=== PATIENT | female | born 1995 ===

== ENCOUNTER 2017-05-03 11:04 | Outpatient (CLI) | payer MEDICAID ==
[2017-05-03 11:39] VITALS: BP 133/79
[2017-05-03] MEDS ORDERED: VISTARIL PO ONE (12:53)
== END 2017-05-03 13:48 | disposition home or self-care (01) ==
LOC: TRG 11:04
PROVIDERS: ATTEND Obstetrics & Gynecology
DX: O47.1 False labor at or after 37 completed weeks of gestation (principal); Z3A.37 37 weeks gestation of pregnancy
CPT/HCPCS: 59025; Q0177

== ENCOUNTER 2017-05-25 11:13 | Outpatient (CLI) | payer MEDICAID ==
[2017-05-25 11:26] VITALS: BP 119/71
== END 2017-05-25 12:49 | disposition home or self-care (01) ==
LOC: TRG 11:13
PROVIDERS: ATTEND Obstetrics & Gynecology
DX: O48.0 Post-term pregnancy (principal); Z3A.40 40 weeks gestation of pregnancy

== ENCOUNTER 2017-05-26 12:26 | Outpatient (CLI) | payer MEDICAID ==
[2017-05-26 12:33] VITALS: BP 117/62
[2017-05-26] MEDS ORDERED: LACTATED RINGERS 1,000 ML ONE (13:25)
[2017-05-26] MEDS ORDERED: VISTARIL PO ONE (14:25)
== END 2017-05-26 15:16 | disposition home or self-care (01) ==
LOC: TRG 12:26
PROVIDERS: ATTEND Obstetrics & Gynecology
DX: O48.0 Post-term pregnancy (principal); Z3A.40 40 weeks gestation of pregnancy
CPT/HCPCS: 59025; 96360; J7120; Q0177

== ENCOUNTER 2017-05-26 22:06 | Outpatient (CLI) | payer MEDICAID ==
[2017-05-26 22:16] VITALS: BP 133/60
--- NOTE | 2017-05-26 23:45 | Ultrasound Report ---
FINAL REPORT EXAM: US OB LIMITED HISTORY: vaginal leaking COMPARISON: None available. TECHNIQUE: Several real-time grayscale and color Doppler images were obtained. FINDINGS: Exam performed for evaluation of GUILLAUME only. GUILLAUME 7.9 centimeters. This is lower limits of normal. cardiac activity demonstrated. heart rate 130 beats per minute. Technologist notes position cephalic. Technologist notes placenta location fundal. IMPRESSION: Normal GUILLAUME 7.9 centimeters.
[2017-05-27] MEDS ORDERED: VISTARIL ONE (00:34)
[2017-05-27] MEDS ORDERED: VISTARIL PO ONE (00:43)
== END 2017-05-27 01:34 | disposition home or self-care (01) ==
LOC: TRG 22:06
PROVIDERS: ATTEND Obstetrics & Gynecology
DX: O42.92 Full-term premature rupture of membranes, unspecified as to length of time between rupture and onset of labor (principal); O48.0 Post-term pregnancy; Z3A.40 40 weeks gestation of pregnancy
CPT/HCPCS: 76815; Q0177

== ENCOUNTER 2018-07-10 15:44 | Outpatient (CLI) | payer MEDICAID ==
[2018-07-10 16:02] VITALS: BP 120/66
[2018-07-10] MEDS ORDERED: LACTATED RINGERS 500 ML IV ONE (17:05)
[2018-07-10 17:27] LABS: Bilirubin,Urine NEG (Negative); Blood,Urine SM (Negative); Color,Urine Yellow (Yellow); Mucus,Urine FEW /HPF; Protein,Urine <15 mg/dL mg/dL (Negative); WBC,Urine < 1.0 /HPF (0.0-6.0)
== END 2018-07-10 18:00 | disposition home or self-care (01) ==
LOC: TRG 15:44
PROVIDERS: ATTEND Obstetrics & Gynecology
DX: O47.03 False labor before 37 completed weeks of gestation, third trimester (principal); Z3A.33 33 weeks gestation of pregnancy
CPT/HCPCS: 81001; 87086

== ENCOUNTER 2018-08-17 05:25 | Inpatient (IN) | payer MEDICAID ==
[2018-08-17] MEDS ORDERED: NARCAN 0.4 MG/1 ML IV PRN (07:18)
[2018-08-17] MEDS ORDERED: MINERAL OIL PO PRN (07:18)
[2018-08-17] MEDS ORDERED: BRETHINE IVP PRN (07:18)
[2018-08-17] MEDS ORDERED: BRETHINE SUB-Q PRN (07:18)
[2018-08-17] MEDS ORDERED: ZOFRAN IV PRN ×2 (07:18→14:42)
[2018-08-17] MEDS ORDERED: SUBLIMAZE IV PRN (07:18)
[2018-08-17] MEDS ORDERED: STADOL IV PRN (07:18)
[2018-08-17] MEDS ORDERED: XYLOCAINE 2% INFILTRATI ONE (07:18)
[2018-08-17] MEDS ORDERED: AMPICILLIN/NS 2 GM/100 ML 2 GM/100 ML BAG IV ONE (07:29)
[2018-08-17] MEDS ORDERED: LACTATED RINGERS 1,000 ML IV SCH (08:00)
[2018-08-17] MEDS ORDERED: PITOCin/NS 20 UNIT/1000ML DRIP 20 UNITS/1,000 ML BAG IV SCH ×2 (08:00→15:00)
[2018-08-17] MEDS ORDERED: PITOCin/NS 30 UNIT/500ML 30 UNITS/500 ML BAG IV SCH (08:00)
[2018-08-17 09:03] LABS: Hematocrit 36.1 % (30.3-42.9); Hemoglobin 11.9 gm/dl (10.1-14.3); Mean Corpuscular HGB Conc 33 % (30-34); Mean Corpuscular Volume 83 fl (79-97); Platelet Count 214 K/mm3 (140-440); Red Blood Count 4.36 M/mm3 (3.65-5.03); Red Cell Distribution Width 13.8 % (13.2-15.2)
[2018-08-17] MEDS ORDERED: NARCAN 2 MG/2 ML IV PRN (11:02)
--- NOTE | 2018-08-17 11:04 | Anesthesia Consultation ---
Anesthesia Consult and Med Hx - Airway Anesthetic Teeth Evaluation: Good ROM Head & Neck: Adequate Mental/Hyoid Distance: Adequate Mallampati Class: Class I Intubation Access Assessment: Probably Good - Pulmonary Exam CTA: Yes - Cardiac Exam Cardiac Exam: RRR - Pre-Operative Health Status ASA Pre-Surgery Classification: ASA2 Proposed Anesthetic Plan: Epidural - Pulmonary Hx Asthma: Yes (inhaler last used more than a year ago) COPD: No Hx Pneumonia: No - Cardiovascular System Hx Hypertension: No Hx Coronary Artery Disease: No Hx Heart Attack/AMI: No Hx Angina: No Hx Percutaneous Transluminal Coronary Angioplasty (PTCA): No Hx Cardia Arrhythmia: No Hx Pacemaker: No Hx Internal Defibrillator: No Hx Valvular Heart Disease: No Hx Heart Murmur: No Hx Peripheral Vascular Disease: No - Central Nervous System Hx Neuromuscular Disorder: No Hx Seizures: No CVA: No Hx Back Pain: No Hx Psychiatric Problems: No - Endocrine Hx Renal Disease: No Hx End Stage Renal Disease: No Hx Hypothyroidism: No Hx Hyperthyroidism: No - Hematic Hx Anemia: No Hx Sickle Cell Disease: No - Other Systems Hx Alcohol Use: No
--- NOTE | 2018-08-17 11:04 | Anesthesia Day of Surgery ---
Anesthesia Day of Surgery - Day of Surgery Patient Examined: Yes Patient H&P Reviewed: Yes Patient is NPO: Yes Beta Blockers: No Cardiac Clearance: No Pulmonary Clearance: No Murtaza's Test: N/A
[2018-08-17] MEDS ORDERED: MARCAINE 0.25% INFILTRATI ONE (11:07)
[2018-08-17] MEDS ORDERED: AMPICILLIN/NS 1 GM/50 ML 1 GM/50 ML BAG IV SCH (11:30)
[2018-08-17] MEDS ORDERED: fentaNYL-BUPIV 2 MCG/ML-0.125% 200 MCG/100 ML BAG EPIDURAL SCH (12:00)
[2018-08-17] MEDS ORDERED: METHERGINE IM ONE ×2 (12:38→15:00)
--- NOTE | 2018-08-17 13:03 | History and Physical Report ---
History of Present Illness Date of examination: 08/17/18 Date of admission: 08/17/18 05:25 Chief complaint: rupture of membranes History of present illness: Pt is a 23 year old -F[place] female TRE 08/25/18 at 38w6d who presents with rupture of membranes at 1 am. She denies vaginal bleeding and reports irregular contractions. She has has care at [facility] since 14 wks complicated by morbid obesity, genital herpes without evid ence of lesion or prodrome, and UTI s/p treatment. She is GBS positive. Past History Past Medical History: other (Morbid Obesity ) Past Surgical History: other (bone marrow biopsy ) [employer] History: herpes Family/Genetic History: diabetes Social history: no significant social history - Obstetrical History Expected Date of Delivery: 08/25/18 Actual Gestation: 38 Week(s) 6 Day(s) : 2 Para: 1 Hx # Term Pregnancies: 1 Number of Pregnancies: 0 Spontaneous Abortions: 0 Induced : 0 Number of Living Children: 1 Medications and Allergies Allergies Allergy/AdvReac Type Severity Reaction Status Date / Time sulfamethoxazole Allergy Rash Verified 01/26/16 00:01 [From Bactrim] trimethoprim [From Bactrim] Allergy Rash Verified 01/26/16 00:01 Home Medications Medication Instructions Recorded Confirmed Last Taken Type Valacyclovir HCl [Valtrex] 1 tab PO DAILY 05/25/17 05/27/17 05/25/17 08:00 History 1 tab Ferrous Sulfate 325 mg PO BID #30 tablet. 05/27/17 07/10/18 Unknown Rx Ibuprofen [Motrin] 600 mg PO Q8H PRN #60 tablet 05/27/17 Unknown Rx oxyCODONE /ACETAMINOPHEN [Percocet 1 tab PO Q6HR PRN #30 tablet 05/27/17 Unknown Rx 5/325] Active Meds: Active Medications Butorphanol Tartrate (Stadol) 2 mg IV Q2H PRN PRN Reason: Pain , Severe (7-10) Last Admin: 08/17/18 09:16 Dose: 2 mg Documented by: Ephedrine Sulfate (Ephedrine Sulfate) 10 mg IV Q2M PRN PRN Reason: Hypotension Ephedrine Sulfate (Ephedrine Sulfate) 10 mg IV Q2M PRN PRN Reason: Hypotension Fentanyl (Sublimaze) 100 mcg IV Q2H PRN PRN Reason: Labor Pain Lactated Ringer's (Lactated Ringers) 1,000 mls @ 125 mls/hr IV DIRECT NHAN Last Admin: 08/17/18 07:48 Dose: 125 mls/hr Documented by: Oxytocin/Sodium Chloride (Pitocin/Ns 20 Unit/1000ml Drip) 20 units in 1,000 mls @ 125 mls/hr IV DIRECT NHAN Oxytocin/Sodium Chloride (Pitocin/Ns 30 Unit/500ml) 30 units in 500 mls @ 4 mls/hr IV TITR NHAN; Protocol Ampicillin Sodium (Ampicillin/Ns 1 Gm/50 Ml) 1 gm in 50 mls @ 100 mls/hr IV Q4HR NHAN; Protocol Fentanyl/Bupivacaine/Sodium Chlor (Fentanyl-Bupiv 2 Mcg/Ml-0.125%) 200 mcg in 100 mls @ 12 mls/hr EPIDURAL TITR NHAN; Protocol Mineral Oil (Mineral Oil) 30 ml PO QHS PRN PRN Reason: Constipation Naloxone HCl (Narcan 0.4 Mg/1 Ml) 0.1 mg IV Q2MIN PRN PRN Reason: Res Rate </= 8 or 02 SAT < 92% Naloxone HCl (Narcan 2 Mg/2 Ml) 0.2 mg IV Q5M PRN PRN Reason: Respiratory sedation Ondansetron HCl (Zofran) 4 mg IV Q8H PRN PRN Reason: Nausea And Vomiting Last Admin: 08/17/18 09:10 Dose: 4 mg Documented by: Terbutaline Sulfate (Brethine) 0.25 mg SUB-Q ONCE PRN PRN Reason: Hyperstimulation/Hypertonicity Terbutaline Sulfate (Brethine) 0.25 mg IVP ONCE PRN PRN Reason: Hyperstimulation/Hypertonicity Review of Systems All systems: negative - Vital Signs Vital signs: Vital Signs Pulse BP 102 H 122/61 08/17/18 05:43 08/17/18 05:43 Temp Pulse Resp BP Pulse Ox 98.5 F 106 H 18 191/80 100 08/17/18 05:51 08/17/18 12:48 08/17/18 05:51 08/17/18 12:48 08/17/18 12:20 - Physical Exam Breasts: Positive: deferred Cardiovascular: Regular rate Lungs: Positive: Clear to auscultation Abdomen: Positive: soft (obese, gravid ) Genitourinary (Female): Positive: normal external genitalia Uterus: Positive: enlarged (gravid ) Extremities: Positive: normal - Obstetrical FHR: auscultation normal Uterine Contraction Monitor Mode: External Cervical Dilatation: 10 Cervical Effacement Percentage: 100 station: 0 Uterine Contraction Pattern: Regular Uterine Tone Measurement Phase: Resting Uterine Contraction Intensity: Strong/Firm Results Result Diagrams: 08/17/18 07:00 Abnormal lab results 08/17/18 Range/Units 07:00 MCH 27 L (28-32) pg All other labs normal. Assessment and Plan A: IUP at 38w6d SROM Second stage labor Morbid Obesity GBS Positive Genital Herpes without lesion or prodrome P: Admit to labor and delivery. Routine intrapartum care
--- NOTE | 2018-08-17 13:04 | Procedure Note ---
OB Delivery Note - Delivery Date of Delivery: 08/17/18 Surgeon: BECCA DE LA ROSA Estimated blood loss: other (400 mL) - Vaginal Delivery presentation: vertex Delivery position: OA Intrapartum events: PROM->1hr before delivery, uterine atony Delivery induction: oxytocin Delivery augmentation: pitocin Delivery monitor: external FHT, external uterine Route of delivery: Delivery placenta: spontaneous Episiotomy: none Delivery laceration: other (Bilateral periurethral ) Delivery repair: vicryl (Left periurethral repaired with 3-0 Vicryl in a standard fashion, others hemostatic ) Anesthesia: local, epidural - A at 1 minute: 8 at 5 minutes: 9 Gender: Female (3009 (6lb 13 oz) @ 1227 pm)
[2018-08-17] MEDS ORDERED: SODIUM CHLORIDE FLUSH SYRINGE 10 ML IV NR (14:42)
[2018-08-17] MEDS ORDERED: DULCOLAX PR PRN (14:42)
[2018-08-17] MEDS ORDERED: PHENERGAN PR PRN (14:42)
[2018-08-17] MEDS ORDERED: TYLENOL PO PRN (14:42)
[2018-08-17] MEDS ORDERED: TUCKS PAD TP PRN (14:42)
[2018-08-17] MEDS ORDERED: DERMOPLAST TP PRN (14:42)
[2018-08-17] MEDS ORDERED: PHENERGAN PO PRN (14:42)
[2018-08-17] MEDS ORDERED: LANSINOH TP PRN ×2 (14:42)
[2018-08-17] MEDS ORDERED: MILK OF MAGNESIA PO PRN (14:42)
[2018-08-17] MEDS ORDERED: BENADRYL PO PRN (14:42)
[2018-08-17] MEDS: IBUPROFEN PO SCH ×2 (15:10→22:27)
[2018-08-17] MEDS: NORCO 5/325 PO PRN (15:21)
--- NOTE | 2018-08-17 16:41 | Event Note ---
Date: 08/17/18 Contacted by pt's RN secondary to moderate bleeding since admission to the unit. Initiate PO Methergine series and continue to monitor clinically.
[2018-08-17] MEDS: METHERGINE PO SCH (16:57)
[2018-08-17] MEDS: FEOSOL PO SCH (22:26)
[2018-08-18] MEDS: METHERGINE PO SCH ×3 (00:17→18:29)
[2018-08-18 01:17] LABS: Hematocrit 31.6 % (30.3-42.9); Hemoglobin 10.4 gm/dl (10.1-14.3)
[2018-08-18] MEDS: IBUPROFEN PO SCH ×4 (05:29→23:42)
[2018-08-18] MEDS ORDERED: BOOSTRIX IM ONE (06:00)
[2018-08-18] MEDS ORDERED: M-M-R II VACCINE SUB-Q ONE (06:00)
--- NOTE | 2018-08-18 09:05 | Progress Note ---
Assessment and Plan A/P PPD1 s/p some blddeing decreased s/p methergine and pitocin continue pp care hct stable Subjective - Subjective Date of service: 08/18/18 Principal diagnosis: s/p Patient reports: appetite normal, voiding normally, pain well controlled, flatus, ambulating normally [place]: doing well Objective - Vital Signs Latest vital signs: Vital Signs Temp Pulse Resp BP BP Pulse Ox 08/18/18 00:00 98.2 F 65 20 109/54 08/17/18 22:27 18 08/17/18 20:00 98.2 F 72 20 105/63 08/17/18 15:54 97.6 F 73 16 133/76 100 08/17/18 14:20 97.9 F 78 19 103/48 99 08/17/18 13:17 85 113/65 08/17/18 12:48 106 H 191/80 08/17/18 12:20 98 H 100 08/17/18 12:17 83 138/59 08/17/18 12:15 99 H 100 08/17/18 12:10 89 129/74 100 08/17/18 12:07 132/65 08/17/18 12:05 101 H 100 08/17/18 12:04 90 130/61 08/17/18 12:01 97 H 143/63 08/17/18 12:00 99 H 100 08/17/18 11:58 138/78 08/17/18 11:56 96 H 137/64 08/17/18 11:55 93 H 100 08/17/18 11:52 89 110/50 08/17/18 11:50 88 100 08/17/18 11:49 102 H 133/57 08/17/18 11:45 98 H 100 08/17/18 11:44 85 61 L 08/17/18 11:40 101 H 100 08/17/18 11:37 104 H 142/63 08/17/18 11:35 104 H 100 08/17/18 11:34 100 H 130/60 08/17/18 11:31 100 H 132/66 94 08/17/18 11:30 97 H 96 08/17/18 11:28 97 H 126/58 08/17/18 11:25 96 H 130/62 99 08/17/18 11:22 106 H 114/62 83 L 08/17/18 11:20 98 H 100 08/17/18 11:19 109 H 129/58 08/17/18 11:16 104 H 131/62 08/17/18 11:15 95 H 100 08/17/18 11:14 85 132/60 08/17/18 11:10 59 L 77 L 08/17/18 11:08 114 H 138/83 82 L 08/17/18 11:04 102 H 99 08/17/18 11:01 100 H 144/79 08/17/18 11:00 88 92 08/17/18 10:59 83 97 08/17/18 10:31 104 H 134/69 08/17/18 10:02 90 137/67 08/17/18 09:31 85 131/64 Intake and Output 08/17/18 08/18/18 08/18/18 23:59 07:59 15:59 Intake Total 500 400 Output Total 250 Balance 250 400 Intake: Oral 500 400 Output: Urine 250 Void 250 Other: Total, Intake Amount 300 400 Total, Output Amount 250 # Voids Void 1 2 - Exam Breasts: Present: normal Cardiovascular: Present: Regular rate, Normal S1 Lungs: Present: Clear to auscultation Abdomen: Present: normal appearance, soft, normal bowel sounds. Absent: distention, tenderness, guarding Vulva: both: normal Uterus: Present: normal, firm, fundal height below umbilicus. Absent: bogginess, tenderness Extremities: Present: normal Deep Tendon Reflex Grade: Normal +2
[2018-08-18] MEDS: FEOSOL PO SCH ×2 (10:09→21:06)
[2018-08-18] MEDS: NORCO 5/325 PO PRN (15:36)
[2018-08-18] MEDS: ROBITUSSIN PO PRN (21:06)
[2018-08-19] MEDS: ROBITUSSIN PO PRN ×3 (01:42→11:50)
[2018-08-19] MEDS: METHERGINE PO SCH ×2 (01:42→11:44)
[2018-08-19] MEDS: IBUPROFEN PO SCH ×2 (05:40→11:44)
[2018-08-19] MEDS: FEOSOL PO SCH (11:43)
--- NOTE | 2018-08-19 12:28 | Progress Note ---
Assessment and Plan A/P PPD2 s/p doing well continue pp care hct stable d/c home today Subjective - Subjective Date of service: 08/19/18 Principal diagnosis: s/p Patient reports: appetite normal, voiding normally, pain well controlled, flatus, ambulating normally : doing well Objective - Vital Signs Latest vital signs: Vital Signs Temp Pulse Resp BP BP Pulse Ox 08/19/18 11:44 20 08/19/18 08:36 98.2 F 73 18 119/57 96 08/19/18 06:40 18 08/19/18 05:40 18 08/19/18 01:18 97.2 F L 78 18 109/62 98 08/19/18 00:42 18 08/18/18 23:42 18 08/18/18 19:29 18 08/18/18 15:53 98.4 F 88 16 101/63 97 Intake and Output 08/18/18 08/19/18 08/19/18 23:59 07:59 15:59 Intake Total 120 960 Balance 120 960 Intake: Oral 480 Intake, Free Water 120 480 Other: Total, Intake Amount 120 # Voids Void 1 1 - Exam Breasts: Present: normal Cardiovascular: Present: Regular rate, Normal S1 Lungs: Present: Clear to auscultation, Normal air movement Abdomen: Present: normal appearance, soft, normal bowel sounds. Absent: distention, tenderness, guarding Uterus: Present: normal, firm, fundal height below umbilicus. Absent: bogginess, tenderness Extremities: Present: normal Deep Tendon Reflex Grade: Normal +2 Incision: Present: normal
--- NOTE | 2018-08-19 12:29 | Discharge Summary ---
Providers - Providers Date of Admission: 08/17/18 05:25 Date of discharge: 08/19/18 Attending physician: BECCA DE LA ROSA Primary care physician: ABEBE BRYAN MD Hospitalization Reason for admission: active labor Delivery: Episiotomy: none Laceration: none Incision: normal, dry, intact Other procedures: none complications: none Discharge diagnosis: IUP at term delivered [place] baby: female Hospital course: unremarkable hospital course. d/c home with f/u in 4 weeks Condition at discharge: Good Disposition: DC-01 TO HOME OR SELFCARE Plan - Discharge Medications Prescriptions: Ibuprofen [Motrin] 800 mg PO Q8HR PRN #30 tablet PRN Reason: Pain, Moderate (4-6) HYDROcodone/APAP 5-325 [[place] 5/325] 1 each PO Q6HR PRN #20 tablet PRN Reason: Pain - Provider Discharge Summary Activity: routine, no sex for 6 weeks, no strenuous exercise Diet: routine Instructions: routine Additional instructions: [] Smoking cessation referral if applicable(refer to patient education folder for contact #) [] Refer to [facility]'s [facility] Booklet Call your doctor immediately for: * Fever > 100.5 * Heavy vaginal bleeding ( >1 pad per hour) * Severe persistent headache * Shortness of breath * Reddened, hot, painful area to leg or breast * Drainage or odor from incision. * Keep incision clean and dry at all times and follow doctor's instructions regarding bathing/showering - Follow up plan Follow up: ABEBE BRYAN MD [Primary Care Provider] - 09/15/18
[2018-08-19] MEDS ORDERED: PROVENTIL IH PRN (14:13)
[2018-08-19 16:42] VITALS: BP 116/66
== END 2018-08-19 14:30 | disposition home or self-care (01) | DRG 774 ==
LOC: LD 05:25 → OB 14:28
PROVIDERS: ADMIT Obstetrics & Gynecology; ATTEND Obstetrics & Gynecology
PROC: 10E0XZZ Delivery of Products of Conception, External Approach (ICD-10-PCS; principal; 2018-08-17)
PROC: 0UQMXZZ Repair Vulva, External Approach (ICD-10-PCS; 2018-08-17)
PROC: 3E0R3BZ Introduction of Anesthetic Agent into Spinal Canal, Percutaneous Approach (ICD-10-PCS; 2018-08-17)
PROC: 00HU33Z Insertion of Infusion Device into Spinal Canal, Percutaneous Approach (ICD-10-PCS; 2018-08-17)
PROC: 3E0234Z Introduction of Serum, Toxoid and Vaccine into Muscle, Percutaneous Approach (ICD-10-PCS; 2018-08-18)
DX: O99.824 Streptococcus B carrier state complicating childbirth (principal); O98.52 Other viral diseases complicating childbirth; B00.9 Herpesviral infection, unspecified; O42.02 Full-term premature rupture of membranes, onset of labor within 24 hours of rupture; E66.01 Morbid (severe) obesity due to excess calories; J45.909 Unspecified asthma, uncomplicated; O99.214 Obesity complicating childbirth; O99.52 Diseases of the respiratory system complicating childbirth; O62.2 Other uterine inertia; O71.82 Other specified trauma to perineum and vulva; Z3A.38 38 weeks gestation of pregnancy; Z37.0 Single live birth; Z23 Encounter for immunization; Z83.3 Family history of diabetes mellitus; Z88.2 Allergy status to sulfonamides; Z88.8 Allergy status to other drugs, medicaments and biological substances
CPT/HCPCS: 36415; 85014; 85018; 85027; 86592; 86850; 86900; 86901; 90471; 90715; 94640; G0378; A6250; J0290; J0595; J2210; J2405; J2590; J7120

== ENCOUNTER 2021-03-29 03:43 | Emergency (ER) | payer MEDICAID ==
[2021-03-29 03:50] VITALS: BP 120/78
[2021-03-29] MEDS ORDERED: dexAMETHasone 20 MG/5 ML VIAL IM ONE (03:58)
[2021-03-29] MEDS ORDERED: ALBUTEROL 2.5 MG/3 ML NEBU IH ONE (03:59)
[2021-03-29] MEDS ORDERED: IBUPROFEN 800 MG TAB PO ONE (03:59)
--- NOTE | 2021-03-29 04:35 | Emergency Department Report ---
ED General Adult HPI - General Chief complaint: Chest Pain Stated complaint: CHEST PAIN Time Seen by Provider: 03/29/21 04:06 Source: patient Mode of arrival: Ambulatory Limitations: No Limitations - History of Present Illness Initial comments: Patient 26-year-old -[place] female history of asthma who presents for chest wall pain times 1 day. Patient is a marijuana smoker daily. Patient denies nausea vomiting, no fever no chills. No suspicious contacts no suspicious travel. Pain is described as squeezing sharp exacerbated by inspiration. Relieved by rest. Patient denies history of GERD however does endorse history of asthma. Patient denies wheezing or shortness of breath. There are no relieving factors. Severity scale (0 -10): 4 - Related Data Home Medications Medication Instructions Recorded Confirmed Last Taken Valacyclovir HCl [Valtrex] 1 tab PO DAILY 05/25/17 08/18/18 08/17/18 09:00 Previous Rx's Medication Instructions Recorded Last Taken Type Ferrous Sulfate 325 mg PO BID #30 tablet. 05/27/17 Unknown Rx Ibuprofen [Motrin] 600 mg PO Q8H PRN #60 tablet 05/27/17 Unknown Rx oxyCODONE /ACETAMINOPHEN [Percocet 1 tab PO Q6HR PRN #30 tablet 05/27/17 Unknown Rx 5/325] HYDROcodone/APAP 5-325 [[place] 1 each PO Q6HR PRN #20 tablet 08/18/18 Unknown Rx 5/325] Ibuprofen [Motrin] 800 mg PO Q8HR PRN #30 tablet 08/18/18 Unknown Rx ALBUTEROL Inhaler(NF) [VENTOLIN 1 puff IH PRN #1 inha 08/19/18 Unknown Rx Inhaler(NF)] Albuterol Mdi (or & Nicu Only) 2 puff IH QID PRN #8.5 gram 03/29/21 Unknown Rx [ProAir HFA Inhaler] Amoxicillin/Potassium Clav 1 each PO BID 7 Days #14 tablet 03/29/21 Unknown Rx [Augmentin 875-125 Tablet] Azithromycin 500 mg PO DAILY #5 tablet 03/29/21 Unknown Rx Ibuprofen [Motrin 800 MG tab] 800 mg PO Q8HR PRN #30 tablet 03/29/21 Unknown Rx dexAMETHasone [Decadron] 4 mg PO BID 5 Days #10 tablet 03/29/21 Unknown Rx Allergies Allergy/AdvReac Type Severity Reaction Status Date / Time sulfamethoxazole Allergy Rash Verified 01/26/16 00:01 [From Bactrim] trimethoprim [From Bactrim] Allergy Rash Verified 01/26/16 00:01 ED Review of Systems ROS: Stated complaint: CHEST PAIN Other details as noted in HPI Constitutional: denies: chills, fever Eyes: denies: eye pain, eye discharge, vision change ENT: denies: ear pain, throat pain Respiratory: cough Cardiovascular: denies: palpitations, dyspnea on exertion, syncope, paroxysmal nocturnal dyspnea Endocrine: no symptoms reported Gastrointestinal: denies: abdominal pain, nausea, vomiting, diarrhea Genitourinary: denies: urgency, dysuria, discharge Musculoskeletal: denies: back pain, joint swelling, arthralgia Skin: denies: rash, lesions Neurological: denies: headache, weakness, paresthesias Psychiatric: denies: anxiety, depression Hematological/Lymphatic: denies: easy bleeding, easy bruising ED Past Medical Hx - Past Medical History Previous Medical History?: Yes Hx Hypertension: No Hx Heart Attack/AMI: No Hx Congestive Heart Failure: No Hx Diabetes: No Hx Deep Vein Thrombosis: No Hx Renal Disease: No Hx Sickle Cell Disease: No Hx Seizures: No Hx Asthma: Yes (inhaler last used more than a year ago) Hx COPD: No Hx HIV: No - Surgical History Past Surgical History?: Yes Hx Pacemaker: No Hx Internal Defibrillator: No - Social History Smoking Status: Never Smoker Substance Use Type: None - Medications Home Medications: Home Medications Medication Instructions Recorded Confirmed Last Taken Type Valacyclovir HCl [Valtrex] 1 tab PO DAILY 05/25/17 08/18/18 08/17/18 09:00 History Ferrous Sulfate 325 mg PO BID #30 tablet. 05/27/17 08/18/18 Unknown Rx Ibuprofen [Motrin] 600 mg PO Q8H PRN #60 tablet 05/27/17 08/18/18 Unknown Rx oxyCODONE /ACETAMINOPHEN [Percocet 1 tab PO Q6HR PRN #30 tablet 05/27/17 08/18/18 Unknown Rx 5/325] HYDROcodone/APAP 5-325 [[place] 1 each PO Q6HR PRN #20 tablet 08/18/18 Unknown Rx 5/325] Ibuprofen [Motrin] 800 mg PO Q8HR PRN #30 tablet 08/18/18 Unknown Rx ALBUTEROL Inhaler(NF) [VENTOLIN 1 puff IH PRN #1 inha 08/19/18 Unknown Rx Inhaler(NF)] Albuterol Mdi (or & Nicu Only) 2 puff IH QID PRN #8.5 gram 03/29/21 Unknown Rx [ProAir HFA Inhaler] Amoxicillin/Potassium Clav 1 each PO BID 7 Days #14 tablet 03/29/21 Unknown Rx [Augmentin 875-125 Tablet] Azithromycin 500 mg PO DAILY #5 tablet 03/29/21 Unknown Rx Ibuprofen [Motrin 800 MG tab] 800 mg PO Q8HR PRN #30 tablet 03/29/21 Unknown Rx dexAMETHasone [Decadron] 4 mg PO BID 5 Days #10 tablet 03/29/21 Unknown Rx ED Physical Exam - General Limitations: No Limitations General appearance: alert, in no apparent distress - Head Head exam: Present: normocephalic, normal inspection - Eye Eye exam: Present: normal appearance, PERRL, EOMI Pupils: Present: normal accommodation - ENT ENT exam: Present: normal orophraynx, mucous membranes moist - Neck Neck exam: Present: normal inspection, full ROM. Absent: tenderness, lymphadenopathy - Respiratory Respiratory exam: Present: normal lung sounds bilaterally, wheezes (mild exp wheezes ), chest wall tenderness (anterior chest wall tenderness to deep palpation, no crepitus no ecchymosis , no bruising, no stepoff ). Absent: respiratory distress, rales, rhonchi, stridor, prolonged expiratory - Cardiovascular Cardiovascular Exam: Present: regular rate, normal rhythm, normal heart sounds. Absent: systolic murmur, diastolic murmur, rubs, gallop - GI/Abdominal GI/Abdominal exam: Present: soft, normal bowel sounds. Absent: distended, tenderness, guarding, rebound, rigid, bruit, hernia - Rectal Rectal exam: Present: deferred - Extremities Exam Extremities exam: Present: normal inspection, full ROM, normal capillary refill. Absent: tenderness - Back Exam Back exam: Present: normal inspection, full ROM. Absent: CVA tenderness (R), CVA tenderness (L) - Neurological Exam Neurological exam: Present: alert, oriented X3, normal gait - Psychiatric Psychiatric exam: Present: normal affect, normal mood - Skin Skin exam: Present: warm, dry, intact, normal color. Absent: rash ED Course Vital Signs 03/29/21 03:49 Temperature 98.3 F Pulse Rate 73 Respiratory 20 Rate Blood Pressure 120/78 [Left] O2 Sat by Pulse 100 Oximetry ED Medical Decision Making - Radiology Data Radiology results: report reviewed, image reviewed CHEST 2 VIEWS INDICATION: chest pain. COMPARISON: 01/26/2016 FINDINGS: Support devices: None. Heart: Within normal limits. Lungs/Pleura: Mild opacity seen anteriorly on the lateral view worrisome for pneumonia. No significant pleural effusion. IMPRESSION: Suspect pneumonia is seen anteriorly on the lateral view. This is likely within the right middle lobe. Signer Name: Kyler Rodriguez MD Signed: 03/29/2021 5:00 AM Workstation Name: [id number] - Medical Decision Making Chest x-ray demonstrates mild right middle lobe pneumonia consistent with assessment. Symptoms are improved with medication given in ED plan DC to home with prescriptions. Patient given Covid precautions. Advised to be tested today, medications as ordered, quarantine as directed, follow-up with primary care doctor in 2 to 3 days call for appointment first. Patient verbalized agreement and understanding with discharge plan patient will be DC'd home in stable condition at this time. Vital signs are stable heart rate 78 O2 sat 97% on room air. BP 121/72. Temp is 98.7. Patient was advised to stop smoking. Advised that she is not ready for cessation. Critical care attestation.: If time is entered above; I have spent that time in minutes in the direct care of this critically ill patient, excluding procedure time. ED Disposition Clinical Impression: CAP (community acquired pneumonia) Qualifiers: Laterality: right Lung location: middle lobe of lung Qualified Code(s): J18.9 - Pneumonia, unspecified organism Disposition: HOME / SELF CARE / HOMELESS Is pt being admited?: No Does the pt Need Aspirin: No Condition: Stable Instructions: Bacterial Pneumonia (ED), Community-Acquired Pneumonia, Adult, Prevent the Spread of COVID-19 if You Are Sick - [facility] Additional Instructions: Hydrate as directed, medications as prescribed, follow-up with your doctor call for appointment advised of Covid quarantine. Return to ED should symptoms worsen. Prescriptions: Amoxicillin/Potassium Clav [Augmentin 875-125 Tablet] 1 each PO BID 7 Days #14 tablet Azithromycin 500 mg PO DAILY #5 tablet dexAMETHasone [Decadron] 4 mg PO BID 5 Days #10 tablet Ibuprofen [Motrin 800 MG tab] 800 mg PO Q8HR PRN #30 tablet PRN Reason: pain Albuterol Mdi (or & Nicu Only) [ProAir HFA Inhaler] 2 puff IH QID PRN #8.5 gram PRN Reason: Shortness Of Breath Referrals: JU FARIAS MD [Staff Physician] - 3-5 Days Forms: Work/School Release Form(ED) Time of Disposition: 05:56
--- NOTE | 2021-03-29 05:04 | XRay Report ---
CHEST 2 VIEWS INDICATION: chest pain. COMPARISON: 01/26/2016 FINDINGS: Support devices: None. Heart: Within normal limits. Lungs/Pleura: Mild opacity seen anteriorly on the lateral view worrisome for pneumonia. No signific ant pleural effusion. IMPRESSION: Suspect pneumonia is seen anteriorly on the lateral view. This is likely within the righ t middle lobe. Signer Name: Kyler Rodriguez MD Signed: 03/29/2021 5:00 AM Workstation Name: [id number]
[2021-03-29] MEDS ORDERED: AZITHROMYCIN 250 MG TAB PO ONE (05:42)
[2021-03-29] MEDS ORDERED: AMOXICILLIN/K CLAV 875/125MG TAB PO ONE (05:42)
== END 2021-03-29 07:01 | disposition home or self-care (01) ==
LOC: ED 03:43
DX: J18.9 Pneumonia, unspecified organism (principal); J45.909 Unspecified asthma, uncomplicated; Z88.2 Allergy status to sulfonamides; Z88.8 Allergy status to other drugs, medicaments and biological substances; Z79.899 Other long term (current) drug therapy
CPT/HCPCS: 71046; 94640; 96372; 99283; J1100

== ENCOUNTER 2021-07-29 05:59 | Emergency (ER) | payer MEDICAID ==
[2021-07-29] MEDS ORDERED: ALBUTEROL 2.5 MG/3 ML NEBU IH ONE (06:19)
[2021-07-29] MEDS ORDERED: ONDANSETRON 4 MG/2 ML INJ IV ONE (06:27)
[2021-07-29] MEDS ORDERED: MORPHINE 4 MG/1 ML INJ IV ONE (06:27)
--- NOTE | 2021-07-29 06:30 | Emergency Department Report ---
ED General Adult HPI - General Chief complaint: Dyspnea/Respdistress Stated complaint: DERRICK Time Seen by Provider: 07/29/21 06:22 Source: patient Mode of arrival: Ambulatory Limitations: No Limitations - History of Present Illness Initial comments: Patient is 26 years old female with history of asthma. Patient presented to the ER complaining of left sided chest pain and shortness of breath. Patient stated that symptoms started last night. Patient described her chest pain as sharp increase with taking a deep breath. Patient denied any fever or chills. She stated that she has similar episode last year and found to have pneumonia. Patient denied any recent history of immobilization however patient is a smoker and had contraceptive implant. -: Last night Location: chest Severity scale (0 -10): 4 Consistency: constant - Related Data Home Medications Medication Instructions Recorded Confirmed Last Taken Valacyclovir HCl [Valtrex] 1 tab PO DAILY 05/25/17 08/18/18 08/17/18 09:00 Previous Rx's Medication Instructions Recorded Last Taken Type Ferrous Sulfate 325 mg PO BID #30 tablet. 05/27/17 Unknown Rx Ibuprofen [Motrin] 600 mg PO Q8H PRN #60 tablet 05/27/17 Unknown Rx oxyCODONE /ACETAMINOPHEN [Percocet 1 tab PO Q6HR PRN #30 tablet 05/27/17 Unknown Rx 5/325] HYDROcodone/APAP 5-325 [[place] 1 each PO Q6HR PRN #20 tablet 08/18/18 Unknown Rx 5/325] Ibuprofen [Motrin] 800 mg PO Q8HR PRN #30 tablet 08/18/18 Unknown Rx ALBUTEROL Inhaler(NF) [VENTOLIN 1 puff IH PRN #1 inha 08/19/18 Unknown Rx Inhaler(NF)] Albuterol Mdi (or & Nicu Only) 2 puff IH QID PRN #8.5 gram 03/29/21 Unknown Rx [ProAir HFA Inhaler] Amoxicillin/Potassium Clav 1 each PO BID 7 Days #14 tablet 03/29/21 Unknown Rx [Augmentin 875-125 Tablet] Azithromycin 500 mg PO DAILY #5 tablet 03/29/21 Unknown Rx Ibuprofen [Motrin 800 MG tab] 800 mg PO Q8HR PRN #30 tablet 03/29/21 Unknown Rx dexAMETHasone [Decadron] 4 mg PO BID 5 Days #10 tablet 03/29/21 Unknown Rx Allergies Allergy/AdvReac Type Severity Reaction Status Date / Time sulfamethoxazole Allergy Rash Verified 01/26/16 00:01 [From Bactrim] trimethoprim [From Bactrim] Allergy Rash Verified 01/26/16 00:01 ED Review of Systems ROS: Stated complaint: DERRICK Other details as noted in HPI Comment: All other systems reviewed and negative Constitutional: denies: chills, fever Respiratory: shortness of breath, SOB at rest. denies: cough, orthopnea, wheezing Cardiovascular: chest pain. denies: palpitations, dyspnea on exertion Gastrointestinal: denies: abdominal pain, nausea, vomiting, diarrhea, constipation, hematemesis, hematochezia Musculoskeletal: denies: back pain Neurological: denies: headache, weakness, numbness, paresthesias, confusion, abnormal gait ED Past Medical Hx - Past Medical History Hx Hypertension: No Hx Heart Attack/AMI: No Hx Congestive Heart Failure: No Hx Diabetes: No Hx Deep Vein Thrombosis: No Hx Renal Disease: No Hx Sickle Cell Disease: No Hx Seizures: No Hx Asthma: Yes (inhaler last used more than a year ago) Hx COPD: No Hx HIV: No - Surgical History Hx Pacemaker: No Hx Internal Defibrillator: No - Social History Smoking Status: Never Smoker Substance Use Type: None - Medications Home Medications: Home Medications Medication Instructions Recorded Confirmed Last Taken Type Valacyclovir HCl [Valtrex] 1 tab PO DAILY 05/25/17 08/18/18 08/17/18 09:00 History Ferrous Sulfate 325 mg PO BID #30 tablet. 05/27/17 08/18/18 Unknown Rx Ibuprofen [Motrin] 600 mg PO Q8H PRN #60 tablet 05/27/17 08/18/18 Unknown Rx oxyCODONE /ACETAMINOPHEN [Percocet 1 tab PO Q6HR PRN #30 tablet 05/27/17 08/18/18 Unknown Rx 5/325] HYDROcodone/APAP 5-325 [Milan 1 each PO Q6HR PRN #20 tablet 08/18/18 Unknown Rx 5/325] Ibuprofen [Motrin] 800 mg PO Q8HR PRN #30 tablet 08/18/18 Unknown Rx ALBUTEROL Inhaler(NF) [VENTOLIN 1 puff IH PRN #1 inha 08/19/18 Unknown Rx Inhaler(NF)] Albuterol Mdi (or & Nicu Only) 2 puff IH QID PRN #8.5 gram 03/29/21 Unknown Rx [ProAir HFA Inhaler] Amoxicillin/Potassium Clav 1 each PO BID 7 Days #14 tablet 03/29/21 Unknown Rx [Augmentin 875-125 Tablet] Azithromycin 500 mg PO DAILY #5 tablet 03/29/21 Unknown Rx Ibuprofen [Motrin 800 MG tab] 800 mg PO Q8HR PRN #30 tablet 03/29/21 Unknown Rx dexAMETHasone [Decadron] 4 mg PO BID 5 Days #10 tablet 03/29/21 Unknown Rx ED Physical Exam - General Limitations: No Limitations General appearance: alert, in distress - Head Head exam: Present: atraumatic, normocephalic, normal inspection - Eye Eye exam: Present: normal appearance - ENT ENT exam: Present: normal exam, normal orophraynx, mucous membranes moist - Neck Neck exam: Present: normal inspection, full ROM. Absent: tenderness, meningismus - Respiratory Respiratory exam: Present: normal lung sounds bilaterally. Absent: wheezes, rales, rhonchi - Cardiovascular Cardiovascular Exam: Present: regular rate, normal rhythm, normal heart sounds - GI/Abdominal GI/Abdominal exam: Present: soft, normal bowel sounds. Absent: distended, tenderness, guarding, rebound, rigid, organomegaly, mass, bruit, pulsatile mass, hernia - Extremities Exam Extremities exam: Present: normal inspection, full ROM, normal capillary refill. Absent: tenderness, pedal edema, joint swelling, calf tenderness - Back Exam Back exam: Present: normal inspection, full ROM. Absent: CVA tenderness (R), CVA tenderness (L) - Neurological Exam Neurological exam: Present: alert, oriented X3, CN II-XII intact, normal gait, reflexes normal. Absent: motor sensory deficit - Psychiatric Psychiatric exam: Present: normal mood - Skin Skin exam: Present: warm, intact, normal color ED Course Vital Signs 07/29/21 07/29/21 07/29/21 06:09 06:12 06:15 Temperature 98.6 F Pulse Rate 72 Respiratory 24 14 Rate Blood Pressure Blood Pressure 133/64 [Right] O2 Sat by Pulse 100 99 100 Oximetry 07/29/21 07/29/21 07/29/21 06:16 06:30 07:08 Temperature Pulse Rate 80 79 Respiratory 14 19 18 Rate Blood Pressure 139/73 142/111 Blood Pressure [Right] O2 Sat by Pulse 100 100 Oximetry 07/29/21 09:27 Temperature 98 F Pulse Rate 74 Respiratory 16 Rate Blood Pressure Blood Pressure 101/56 [Right] O2 Sat by Pulse 96 Oximetry ED Medical Decision Making - Lab Data Result diagrams: 07/29/21 06:44 07/29/21 06:44 - EKG Data -: EKG Interpreted by Mo EKG shows normal: sinus rhythm Rate: normal - EKG Data Interpretation: no acute changes - Radiology Data Radiology results: report reviewed - Medical Decision Making Patient is 26 years old female with history of asthma. Patient presented to the ER complaining of left sided chest pain and shortness of breath. Patient stated that symptoms started last night. Patient described her chest pain as sharp increase with taking a deep breath. Patient denied any fever or chills. She stated that she has similar episode last year and found to have pneumonia. Patient denied any recent history of immobilization however patient is a smoker and had contraceptive implant. EKG showed no ST elevation or depression. Chest x-ray is unremarkable. Labs reviewed and is negative except for a slightly elevated D-dimer however CTA chest is negative for PE or any other pathology. Patient symptoms most likely pleurisy however patient strongly advised to follow-up with her primary care physician in the next 2 to 3 days and to return to the ER if he develop any new symptoms. Patient given prescription for Naprosyn. Critical care attestation.: If time is entered above; I have spent that time in minutes in the direct care of this critically ill patient, excluding procedure time. ED Disposition Clinical Impression: Acute chest pain, Pleurisy Disposition: 01 HOME / SELF CARE / HOMELESS Is pt being admited?: No Condition: Stable Instructions: Chest Pain (ED), Nonspecific Chest Pain, Adult, Pleurisy Referrals: PRIMARY CARE, [Primary Care Provider] - 3-5 Days
--- NOTE | 2021-07-29 06:47 | XRay Report ---
CHEST 1 VIEW INDICATION / CLINICAL INFORMATION: Dyspnea. COMPARISON: 03/29/2021 FINDINGS: SUPPORT DEVICES: None. HEART / MEDIASTINUM: No significant abnormality. LUNGS / PLEURA: Suboptimal inspiration. Focal parenchymal disease in the right lung base may just rep resent atelectasis due to suboptimal inspiration. The lungs are otherwise grossly clear. ADDITIONAL FINDINGS: No significant additional findings. IMPRESSION: 1. Suboptimal inspiration. This limits evaluation. There is some intimal parenchymal disease in the r ight lung base. Whether this represents some atelectasis due to suboptimal inspiration versus possibl e developing pneumonia is unclear and clinical correlation is recommended. Signer Name: Veronica Beverly MD Signed: 07/29/2021 6:43 AM Workstation Name: [id number]
[2021-07-29] MEDS ORDERED: diphenhydrAMINE 50 MG/ML VIAL IV ONE (07:14)
[2021-07-29 07:54] LABS: Basophils % (Auto) 0.5 % (0.0-1.8); Eosinophils # (Auto) 0.2 K/mm3 (0.0-0.4); Hematocrit 39.5 % (30.3-42.9); Hemoglobin 12.7 gm/dl (10.1-14.3); Lymphocytes # (Auto) 1.7 K/mm3 (1.2-5.4); Lymphocytes % (Auto) 31.3 % (13.4-35.0); Mean Corpuscular HGB Conc 32 % (30-34); Mean Corpuscular Volume 86 fl (79-97); Monocytes # (Auto) 0.5 K/mm3 (0.0-0.8); Platelet Count 201 K/mm3 (140-440); Red Blood Count 4.58 M/mm3 (3.65-5.03); Red Cell Distribution Width 13.1 % (13.2-15.2)
[2021-07-29 08:01] LABS: INR 0.98 (0.87-1.13)
[2021-07-29 08:02] LABS: Partial Thromboplastin Time 27.8 Sec. (24.2-36.6)
[2021-07-29 08:14] LABS: Blood Urea Nitrogen 5 mg/dL (7-17); Calcium 8.2 mg/dL (8.4-10.2); Hemolysis Index 4
[2021-07-29 08:15] LABS: BUN/Creatinine Ratio 10
[2021-07-29] MEDS ORDERED: KETOROLAC 30 MG/1 ML INJ IV ONE (09:16)
[2021-07-29 09:28] VITALS: BP 101/56
[2021-07-29 10:44] LABS: Bilirubin,Urine NEG (Negative); Blood,Urine NEG (Negative); Color,Urine Yellow (Yellow); Protein,Urine <15 mg/dL mg/dL (Negative); Urobilinogen,Urine < 2.0 mg/dL (<2.0)
--- NOTE | 2021-07-29 10:54 | Cat Scan Report ---
CTA CHEST WITH CONTRAST INDICATION / CLINICAL INFORMATION: CHEST PAIN WITH SOB. TECHNIQUE: Axial CT images were obtained through the chest after injection of 95 cc of Omnipaque 350 IV contrast. 3 plane MIP and/or 3D reconstructions were produced. All CT scans at this location are p erformed using CT dose reduction for ALARA by means of automated exposure control. COMPARISON: Chest radiograph dated 07/29/2021 FINDINGS: PULMONARY ARTERIES: No pulmonary emboli. THORACIC AORTA: No significant abnormality. HEART: No significant abnormality. CORONARY ARTERY CALCIFICATION: None. MEDIASTINUM / REE: No significant abnormality. PLEURA: No pleural effusion. No pneumothorax. LUNGS: No acute air space or interstitial disease. Scattered atelectasis. ADDITIONAL FINDINGS: None. UPPER ABDOMEN: No acute findings. SKELETAL STRUCTURES: No significant osseous abnormality. IMPRESSION: 1. No CT evidence for pulmonary embolism. 2. No acute findings. Signer Name: Nelson Richardson DO Signed: 07/29/2021 10:50 AM Workstation Name: [id number]
[2021-07-29 12:18] LABS: RBC,Urine < 1.0 /HPF (0.0-6.0); WBC,Urine < 1.0 /HPF (0.0-6.0)
--- NOTE | 2021-07-31 08:55 | Electrocardiograph Report ---
[facility] Test Date: 2021-07-29 Test Time: 07:00:05 Pat Name: JAD FRIED Department: Room: Gender: F [employer]: DEVORAH : 1995 Requested By: JOSELITO ESCOBAR Order Number: [id number] Reading MD: Ghassan Gallegos Measurements Intervals [place] Rate: 92 P: 61 [place]: 178 QRS: 85 QRSD: 80 T: 29 QT: 344 QTc: 426 Interpretive Statements Sinus rhythm Rightward axis deviation No previous ECG available for comparison Electronically Signed On 07-31-2021 8:54:51 EDT by Ghassan Gallegos
== END 2021-07-29 12:44 | disposition home or self-care (01) ==
LOC: ED 05:59
DX: R07.89 Other chest pain (principal); R07.81 Pleurodynia; J45.909 Unspecified asthma, uncomplicated; Z88.2 Allergy status to sulfonamides; Z88.8 Allergy status to other drugs, medicaments and biological substances; Z79.899 Other long term (current) drug therapy
CPT/HCPCS: 36415; 71045; 71275; 80048; 81001; 84484; 84703; 85025; 85379; 85610; 85730; 87040; 93005; 94640; 96374; 96375; 99284; J1200; J1885; J2270; J2405; Q9967